=== PATIENT | female | born 1985 | race Caucasian/White ===

== ENCOUNTER 2025-07-07 07:45 | Outpatient (CLI) | payer OTHER, SELFPAY ==
--- NOTE | ~2025-07-07 | MM_ITS ---
EXAMINATION: MM screening amy BI w alma HISTORY: Screening TECHNIQUE: Craniocaudal and mediolateral oblique 3-D tomosynthesis images were obtained and synthetic 2-D images were generated. CAD analysis was submitted and interpreted. COMPARISON: No prior mammogram is available for comparison at this institution. BREAST PARENCHYMAL COMPOSITION: Not dense: There are scattered areas of fibroglandular density. FINDINGS: There is no evidence of suspicious mass, calcification, or architectural distortion to suggest malignancy in either breast. There has been no suspicious interval change. IMPRESSION: 1. No mammographic evidence of malignancy. 2. Recommend routine screening mammography in one year. BI-RADS Category 1: Negative Reviewed, dictated and finalized at location O.
--- OUTSIDE RECORDS SUMMARY | 2025-07-07 07:49 | XMS_ITS | Clinical Summary ---
Author Organization [facility] Address [address] [place] [address] Care Team Providers Care Mailmaster Name Role Phone Lilo Miramontes MD Primary Care Provider + Lilo Miramontes MD Unavailable [phone] Source Comments [facility],non-owned Affiliates and Associated Physician Practices is amultiple site organization consisting of ambulatory clinics and hospital sitesin [place], [place], [place]. This disclosure is being madepursuant to the Care Everywhere program and may not contain all information available regarding this patient. Last updated 18.[facility] Allergies No known active allergies Medications * Be aware that medications may not be up to date on this document. Alwaysverify current medications with the patient. 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 area 2 times daily 60 g 04/21/20 25 Active escitalopram (Lexapro) 10 MG tabletIndicatio ns:Recurrent major depressive disorder, in remission Take 1 tablet by mouth once daily 90 tablet 06/27/20 25 Active escitalopram (Lexapro) 10 MG tabletIndicatio ns:Recurrent major depressive disorder, in remission Take 1 (one) tablet by mouth once daily 90 tablet 1 12/17/19 25 025 Discontinued Active Problems Problem Noted Date Diagnosed Date Moderate mixed hyperlipidemia not requiring stat in therapy 01/10/2022 Overview (01/10/2022): LDL 120 in 12/2021 Obesity (BMI 30-39.9) 01/05/2022 Assessment & Plan (01/05/2022 9:38 AM COMPUTER SYSTEMS MANAGER): -Body mass index is 30.99 kg/m . -Lifestyle modifications discussed, including exercise, weight loss, and healthy diet. -Labs ordered as below -If labs without secondary cause for weight gain, will start Ozempic. If ozempic is not covered, will order phentermine. -Goal of at least 5% (based on today's weight, goal of 182lb) of total body weight at 3-6mths. Recurrent major depressive disorder 01/05/2022 Assessment & Plan (01/05/2022 9:39 AM COMPUTER SYSTEMS MANAGER): Depression - PHQ-2 = 0 on 01/05/2022 - Denies SI and thoughts of self-harm - Discussed options for treatment - including exercise, therapy, meds - Continue Lexapro 10mg qd - Counselled on possible side effects for first several weeks - Counselled on need for tapering off meds - should return to clinic/call if wanting to stop meds - Recommend therapist Encounters Date Type Department Care Team Description 06/27/[address] [place] [id number] Lilo Miramontes MD Refill Request 04/21/2025 9:40 AM CDT Office Visit [address] [place] [phone] Lilo Miramontes MD Sunburn (Primary Dx); Polymorphous light eruption; Skin lesion from Last 3 Months Immunizations Immunization Administration Dates Next Due Covid Pfizer primary Monovalent 12+ yr 0.3ml TDAP (7yrs+) 01/05/2022 Family History Medical History Relation Name Comments Arthritis - Rheumatoid Father CAD (Coronary Artery Disease) Father Hypertension Father Cancer - Breast Mother dx at 50 Arthritis - Rheumatoid Sister Diabetes - Type 2 Neg Hx Relation Name Status Comments Father Alive Mother Sister Social History Tobacco Use Types Packs/Day Years Used Date Smoking Tobacco: Never Smokeless Tobacco: Never Tobacco Cessation:Counseling Given: Not Answered Alcohol Use Standard Drinks/Week Comments No 0 (1 standard drink = 0.6 oz pur e alcohol) occ PHQ-2 Answer Date Recorded Patient Health Questionnaire-2 Score 0 04/21/2025 Comments No Sex and Gender Information Value Date Recorded Sex Assigned at Female 05/02/2021 11:30 AM CDT Legal Sex Female 7:20 AM COMPUTER SYSTEMS MANAGER Gender Identity Female 05/02/2021 11:30 AM CDT Sexual Orientation Straight 05/02/2021 11 :30 AM CDT Last Filed Vital Signs Vital Sign Reading Time Taken Comments Blood Pressure 124/78 04/21/2025 9:26 AM CDT Pulse 100 04/21/2025 9:26 AM CDT Temperature 36.6 C (97.8 F) 12/17/2024 8:14 AM COMPUTER SYSTEMS MANAGER Respiratory Rate 18 04/21/2025 9:26 AM CDT Oxygen Saturation 95% 04/21/2025 9:26 AM CDT Inhaled Oxygen Concentration - - Weight 101.8 kg (224 lb 8 oz) 04/21/2025 9:26 AM CDT Height 167.6 cm (5' 6) 04/21/2025 9:26 AM CDT Body Mass Index 36.24 04/21/2025 9:26 AM CDT Plan of Treatment Upcoming Encounters Date Type Department Care Team (Late st Contact Info) Description 12/19/2025 8:00 AM COMPUTER SYSTEMS MANAGER Office Visit [facility] - Family Medicine [address] [place] [address] [place] [address] [place] [address] Health Maintenance Due Date Last Done Comments MAMMOGRAM 1984 HPV VACCINE (1 - 3-dose SCDM series) 2011 COVID-19 VACCINE ( season) 2024 05/27/2022, 02/15/2021, 01/24/2021 INFLUENZA VACCINE (#1) 2025 PAP SMEAR 08/29/2026 08/29/2023 SCREENING FOR DIABETES 12/17/2027 , 12/13/2023, 12/01/2022, Additional history exists PAP with HPV 08/29/2028 08/29/2023 LIPID TESTING 12/17/2029 12/17/2024, 11/15, 12/01/2022, Additional history exists DTAP/TDAP/TD VACCINES (2 - Td or Tdap) 01/05/2032 01/05/2022 ZOSTER VACCINE (1 of 2) 2034 HIV SCREENING Discontinued 01/05/2022 DEPRESSION SCREENING Completed 12/17/2024, 12/13/2023, 06/06/2023, Additional history exists HEPATITIS B VACCINE Discontinued HEPATITIS C SCREENING Discontinued HIB VACCINE Aged Out No longer eligi ble based on patient's age to complete this topic MENINGOCOCCAL (Group B) VACCINE SHARED DECISION-MAKING Aged Out No longer eligible based on patient's age to complete this topic MENINGOCOCCAL GROUPS A/C/Y/W VACCINE Aged Out No longer eligible based on patient's age to complete this topic PNEUMOCOCCAL VACCINE Aged Out No long er eligible based on patient's age to complete this topic Procedures Procedure Name Priority Date/Time Associated Diagnosis Comments COMPREHENSIVE METABOLIC PANEL Routine 12/17/2024 9:10 AM COMPUTER SYSTEMS MANAGER Health care maintenance LIPID PROFILE Routine 12/17/2024 9:10 AM COMPUTER SYSTEMS MANAGER Health care maintenance SCAN ONLY HIS HUMAN PAPILLOMA VIRUS 08/29/2023 HIV-1 HIV-2 ANTIBODY + HIV P24 AG PANEL Routine 01/05/2022 9:40 AM COMPUTER SYSTEMS MANAGER Screen for STD (sexually transmitted disease) Health care maintenance from Last 3 Months or Most Recently Relevant to Health Maintenance Results * (ABNORMAL) COMPREHENSIVE METABOLIC PANEL (12/17/2024 9:10 AM COMPUTER SYSTEMS MANAGER) Glucose 103(H) 70 - 99 mg/dL [facility] INSURANCE BILL BUN 9 5.3 - 18.7 mg/dL [facility]URANCE BILL Creatinine 0.74 0.57 - 1.11 mg/dL [facility] INSURANCE BILL eGFR by CKD-EPI >90 >=90 mL/min/1.7 3 m2 [facility] INSURANCE BILL Sodium 138 136 - 145 mmol/L [facility] INSURANCE BILL Potassium 4.2 3.5 - 5.1 mmol/L [facility] INSURANCE BILL Chloride 105 98 - 107 mmol/L [facility] INSURANCE BILL CO2 24 22 - 29 mmol/L [facility] INSURANCE BILL Calcium 8.8 8.4 - 10.4 mg/dL [facility] INSURANCE BILL Protein Total 7.5 6.4 - 8.3 gm/dL [facility] INSURANCE BILL Albumin 3.6 3.4 - 5.0 gm/dL [facility] INSURANCE BILL Bilirubin Total 0.5 0.2 - 1.2 mg/dL [facility] INSURANCE BILL Alkaline Phosphatase 95 40 - 150 U/L [facility] INSURANCE BILL AST 15 5 - 34 U/L [facility] INSURANCE BILL ALT 15 0 - 55 U/L [facility] INSURANCE BILL Blood BLOOD SPECIMEN / Unknown 12/17/2024 9:10 AM COMPUTER SYSTEMS MANAGER 12/17/2024 Narrative [facility] INSURANCE BILL - 12/17/2024 5:08 PM COMPUTER SYSTEMS MANAGER Performed at: [address] [place] [address] [address] [place], [place], [place] [id number] Sign Hanger: Peter Garrison [facility], Phone: [phone] us Lilo Miramontes MD LAB - CHEMISTRY ORDERABL ES Final Result [facility] INSURANCE BILL [address] [place] [address] * LIPID PROFILE (12/17/2024 9:10 AM COMPUTER SYSTEMS MANAGER) Cholesterol 181 <200 mg/dL [facility] INSURANCE BILL Triglycerides 134 <150 mg/dL [facility] INSURANCE BILL HDL Cholesterol 50 >40 mg/dL [facility]URANCE BILL VLDL Calculated 27 <=30 mg/dL [facility] INSURANCE BILL LDL Calculated 104 <130 mg/dL [facility] INSURANCE BILL Blood BLOOD SPECIMEN / Unknown 12/17/2024 9:10 AM COMPUTER SYSTEMS MANAGER 12/17/2024 Narrative [facility] INSURANCE BILL - 12/17/2024 5:08 PM COMPUTER SYSTEMS MANAGER Performed at: [address] [address] [address], [place], [place] [id number] Sign Hanger: Peter Garrison [facility], Phone: [phone] us Lilo Miramontes MD LAB - CHEMISTRY ORDERABL ES Final Result [facility] INSURANCE BILL [address] [place] [address] * SCAN ONLY HIS HUMAN PAPILLOMA VIRUS (08/29/2023) 08/29/2023 Narrative 08/29/2023 Ordered by an unspecified provider. us Scanned Document SCANNING ONLY Final Result * HIV-1 HIV-2 ANTIBODY + HIV P24 AG PANEL (01/05/2022 9:40 AM COMPUTER SYSTEMS MANAGER) [facility] HIV Screen 4th Generation w Reflex Non Reactive Non Reactive [facility] INSURANCE BILL Comment: HIV Negative HIV-1/HIV-2 antibodies and HIV-1 p24 antigen were NOT detected. There is no laboratory evidence of HIV infection. FASTING Blood BLOOD SPECIMEN / Unknown 01/05/2022 9:40 AM COMPUTER SYSTEMS MANAGER 01/05/2022 Narrative Resulting Agency Comment Lab Testing performed at: [facility] [id number] us Lilo Miramontes MD LAB - CHEMISTRY ORDERABL ES Final Result [facility] INSURANCE BILL [address] [place] [address] from Last 3 Months or Most Recently Relevant to Health Maintenance Insurance [employer] Care Teams Mailmaster Relationship Specialty Start [place] [id number] [place] [address] PCP - General Family Medicine 04/27/22 [place] [phone] [place] [address] PCP - Attributed-[employer] 02/11/22
== END 2025-07-07 07:46 | disposition home or self-care (01) ==
PROVIDERS: Visit Provider Obstetrics & Gynecology
DX: Z12.31 Encounter for screening mammogram for malignant neoplasm of breast (principal)
CPT/HCPCS: 77063; 77067